=== PATIENT | female | born 1940 | race Caucasian/White ===

== ENCOUNTER 2017-02-21 11:40 | Emergency (ER) | payer MEDICARE ==
[2017-02-21 11:51] VITALS: PULSE 78
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
[2017-02-21 12:44] VITALS: BP 105/55; RESP 15; TEMP 98
== END 2017-02-21 14:06 | disposition home or self-care (01) ==
LOC: EC 11:40
DX: F10.120 Alcohol abuse with intoxication, uncomplicated (principal); F32.9 Major depressive disorder, single episode, unspecified; I10 Essential (primary) hypertension; Z79.899 Other long term (current) drug therapy; Z87.891 Personal history of nicotine dependence
CPT/HCPCS: 82075; 99284